=== PATIENT | male | born 1960 | race Two or more races ===

== ENCOUNTER 2022-03-04 05:42 | Observation (INO) ==
[2022-03-04] MEDS ORDERED: propofoL 200 MG/20 ML VIAL IV ONE ×3 (05:59→09:10)
[2022-03-04] MEDS ORDERED: ROCURONIUM 50 MG/5 ML VIAL IV ONE (05:59)
[2022-03-04] MEDS ORDERED: DEXAMETHASONE 4 MG/1 ML VIAL ONE (05:59)
[2022-03-04] MEDS ORDERED: ONDANSETRON 4 MG/2 ML VIAL ONE (05:59)
[2022-03-04] MEDS ORDERED: LIDOCAINE 2% 5 ML VIAL ONE (05:59)
[2022-03-04] MEDS ORDERED: fentaNYL 100 MCG/2 ML VIAL ONE (05:59)
[2022-03-04] MEDS ORDERED: VANCOMYCIN INJ 1,000 MG in SODIUM CHLORIDE 0.9% 250 ML IV ONE (06:00)
[2022-03-04] MEDS ORDERED: ceFAZolin 2,000 MG/50 ML DUPLEX IV ONE (06:00)
[2022-03-04] MEDS ORDERED: PHENYLEPHRINE 10 MG/1 ML VIAL IV ONE (06:05)
[2022-03-04] MEDS ORDERED: MIDAZOLAM 2 MG/2 ML VIAL ONE (06:10)
[2022-03-04] MEDS ORDERED: ROPIVACAINE 0.5% 30 ML VIAL ONE (06:15)
[2022-03-04] MEDS ORDERED: buprenorphine HCL 0.3 MG/ML VIAL ONE (06:20)
[2022-03-04] MEDS ORDERED: ACETAMINOPHEN 500 MG TABLET PO ONE (06:21)
[2022-03-04] MEDS ORDERED: FAMOTIDINE 20 MG TABLET PO ONE (06:21)
[2022-03-04] MEDS ORDERED: GABAPENTIN 400 MG CAPSULE PO ONE (06:21)
[2022-03-04] MEDS ORDERED: BUPIVACAINE MPF 0.5% 30 ML VIAL ONE (06:30)
[2022-03-04] MEDS ORDERED: LACTATED RINGERS 1,000 ML IV SCH (06:30)
[2022-03-04 06:44] LABS: INR 0.9; PT Patient Result 10.2 SECS (10.1-12.1); Partial Thromboplastin Time 26.1 SECS (23.7-32.9)
[2022-03-04] MEDS ORDERED: BISACODYL 5 MG TABLET PO PRN (07:08)
[2022-03-04] MEDS ORDERED: ONDANSETRON 4 MG/2 ML VIAL IV PRN (07:10)
[2022-03-04] MEDS ORDERED: MORPHINE 2 MG/1 ML SYRINGE IV PRN ×2 (07:10)
[2022-03-04] MEDS ORDERED: MAGNESIUM HYDROXIDE SUSP 30 ML UDCUP PO PRN (07:10)
[2022-03-04] MEDS ORDERED: diphenhydrAMINE CAP 25 MG CAPSULE PO PRN (07:10)
[2022-03-04] MEDS ORDERED: ZALEPLON 5 MG CAPSULE PO PRN (07:10)
[2022-03-04] MEDS ORDERED: NEOMYCIN/POLYMYXIN/BACITRACIN OINT 28.4 GM TUBE TOP ONE (08:57)
[2022-03-04] MEDS ORDERED: LACTATED RINGERS 1,000 ML IV ONE (09:10)
[2022-03-04] MEDS ORDERED: SODIUM CHLORIDE 0.9% 250 ML IV ONE ×2 (09:10)
[2022-03-04] MEDS ORDERED: TRANEXAMIC ACID 1,000 MG/10 ML VIAL ONE (09:10)
[2022-03-04 09:41] LABS: Bacteria,Urine Occasional /HPF (Few); RBC,Urine <1 /HPF (0-4)
[2022-03-04 09:42] LABS: Glucose,Urine (UA) 100 mg/dL (Negative); Protein,Urine Trace mg/dL (Negative); Urine Appearance Clear (Clear); Urine Color Yellow (Yellow)
[2022-03-04 09:43] LABS: Bilirubin,Urine Negative (Negative); Blood, Urine Negative (Negative); Ketones,Urine Negative (Negative); Nitrite,Urine Negative (Negative); Urine Urobilinogen 0.2 eU/dL (<2.0)
[2022-03-04] MEDS: DOCUSATE SODIUM 100 MG CAPSULE PO SCH ×2 (12:27→21:30)
[2022-03-04] MEDS: ceFAZolin 2,000 MG/50 ML DUPLEX IV SCH ×2 (12:27→21:30)
[2022-03-04] MEDS: POTASSIUM CHLORIDE 20 MEQ TABLET PO SCH (12:27)
[2022-03-04] MEDS: LACTATED RINGERS 1,000 ML IV SCH ×3 (12:49→21:45)
[2022-03-04] MEDS: KETOROLAC 30 MG/1 ML VIAL IV SCH ×3 (12:50→21:45)
[2022-03-04] MEDS: INSULIN LISPRO 100 UNIT/ML SUBCUT SCH ×2 (17:11→22:26)
[2022-03-04] MEDS: INSULIN ASPART PROTAMINE/ASPART 70/30 100 UNIT/ML SUBCUT SCH (17:19)
[2022-03-05] MEDS ORDERED: KETOROLAC 30 MG/1 ML VIAL IV SCH (03:30)
[2022-03-05] MEDS ORDERED: KETOROLAC 30 MG/1 ML VIAL ONE (03:56)
[2022-03-05] MEDS: KETOROLAC 30 MG/1 ML VIAL IV SCH (04:04)
[2022-03-05] MEDS ORDERED: FONDAPARINUX 2.5 MG/0.5 ML SYRINGE SUBCUT SCH (05:00)
[2022-03-05 05:08] LABS: Basophils % 0.3 % (0.0-0.8); Eosinophils % 0.3 % (0.00-10.9); Hematocrit 29.1 VOL% (42.0-52.0); Hemoglobin 9.6 GM/DL (14.0-18.0); Immature Granulocytes % 0.6 %; Immature Granulocytes Absolute 0.05 #; Lymphocytes # 1.2 10*3/uL (1.4-4.0); Mean Corpuscular Volume 87.1 FL (87-102); Monocytes # 0.9 10*3/uL (0.11-0.8); Monocytes % 10.4 % (1.7-12.7); Neutrophils % 75.4 % (38.7-73.9); Platelet Count 216 T/CUMM (130-400); Red Blood Count 3.34 MC/CUMM (3.8-5.5); Red Cell Distribution Width 13.5 % (9.3-17.3); White Blood Count 8.8 T/CUMM (4-12)
[2022-03-05 05:31] LABS: Calcium 8.3 MG/DL (8.5-10.1); Osmolality,Calculated 287.4 MOS/KG (273-304); Potassium 4.8 MMOL/L (3.5-5.1)
[2022-03-05] MEDS: LACTATED RINGERS 1,000 ML IV SCH (05:50)
[2022-03-05] MEDS: INSULIN LISPRO 100 UNIT/ML SUBCUT SCH (07:53)
[2022-03-05] MEDS: INSULIN ASPART PROTAMINE/ASPART 70/30 100 UNIT/ML SUBCUT SCH (07:58)
[2022-03-05] MEDS: POTASSIUM CHLORIDE 20 MEQ TABLET PO SCH (08:01)
[2022-03-05] MEDS: DOCUSATE SODIUM 100 MG CAPSULE PO SCH (08:01)
[2022-03-05] MEDS ORDERED: CHLORTHALIDONE 25 MG TABLET PO SCH (09:00)
[2022-03-05] MEDS ORDERED: LOSARTAN 50 MG TABLET PO SCH (09:00)
[2022-03-05 12:50] VITALS: BP 144/65
[2022-03-05] MEDS ORDERED: amLODIPine 10 MG TABLET PO SCH (21:00)
== END 2022-03-05 15:39 | disposition home health service (06) ==
LOC: N.SDSINP 05:42 → INTOOBSV 05:42 → N.3E 10:18
PROVIDERS: ADMIT Orthopaedic Surgery; ATTEND Orthopaedic Surgery